=== PATIENT | male | born 1975 | race Caucasian/White ===

== ENCOUNTER 2018-06-13 08:49 | Emergency (ER) | payer OTHER ==
[~2018-06-13] VITALS: Ht 177.8 cm; Wt 113.4 kg
[2018-06-13] MEDS ORDERED: AVAPRO150 MG (09:01)
[2018-06-13] MEDS ORDERED: SYNTHROID100 MCG (09:01)
== END 2018-06-13 14:49 | disposition home or self-care (01) ==
LOC: ER 08:49
DX: R53.1 Weakness (principal); R10.84 Generalized abdominal pain

== ENCOUNTER 2024-05-23 10:36 | Emergency (ER) | payer OTHER ==
[~2024-05-23] VITALS: Ht 177.8 cm; Wt 104.3 kg
[~2024-05-23 10:36] MED LIST: AVAPRO150 MG; SYNTHROID100 MCG
[2024-05-23] MEDS ORDERED: ATORVASTATIN CA10 MG PO (10:47)
[2024-05-23] MEDS ORDERED: INVOKAMET XR 11 EAC1 PO (10:47)
[2024-05-23] MEDS ORDERED: TRULICITY0.75 MG/0. SQ (10:47)
[2024-05-23] MEDS ORDERED: URSO FORTE500 MG (10:47)
[2024-05-23] MEDS ORDERED: ZESTRIL2.5 MG (10:48)
[2024-05-23] MEDS ORDERED: CEFTRIAXONE SODIUM 1,000 MG VIAL IM STA (11:27)
[2024-05-23] MEDS ORDERED: KETOROLAC TROMETHAMINE 30 MG VIAL IM STA (11:27)
== END 2024-05-23 11:54 | disposition home or self-care (01) ==
LOC: ER 10:37
DX: J02.8 Acute pharyngitis due to other specified organisms (principal); B96.89 Other specified bacterial agents as the cause of diseases classified elsewhere